=== PATIENT | male | born 1965 | race Caucasian/White ===

== ENCOUNTER 2018-09-23 14:53 | Emergency (ER) | payer OTHER ==
[2018-09-23] MEDS: DIPHTH/TET/ACEL PERTUSS (ADULT) 0.5 ML VIAL IM* (17:44)
== END 2018-09-23 17:52 | disposition home or self-care (01) ==
LOC: FTE 14:53
DX: S91.331A Puncture wound without foreign body, right foot, initial encounter (principal); W45.0XXA Nail entering through skin, initial encounter; Y92.89 Other specified places as the place of occurrence of the external cause; Z23 Encounter for immunization
CPT/HCPCS: 90471; 90715; 99283-25